=== PATIENT | male | born 2000 | race Caucasian/White ===

== ENCOUNTER 2024-06-30 10:40 | Emergency (ER) | payer BC, SELFPAY ==
[2024-06-30 10:56] VITALS: BP 151/84
[2024-06-30 11:38] VITALS: BMI 30.7
--- NOTE | 2024-06-30 11:49 | ED.GENMED ---
History of Present Illness
General
Chief Complaint: Chest Pain
Source: patient
Exam Limitations: none
Time Seen by Provider: 06/30/24 11:22
Nursing documentation reviewed up to this point in time: agreed with
History of Present Illness
History of Present Illness:
Patient is a 23-year-old male presenting to the emergency department for evaluation of chest pain. Patient reports that he has had mild chest discomfort on his left side over the past 3 to 4 days, worse with deep inspiration. There is no radiation
of pain. Patient denies any exertional component to pain. Patient denies any associated fever, chills, cough, lightheadedness/dizziness, back pain, or lower extremity swelling/pain.
Patient does note that he has had an intermittent cold for many weeks that seems to come and go. He denies any significant coughing with his upper respiratory infection.
No recent travel. No recent surgeries. No personal or family history of blood clots or clotting disorders. Patient denies smoking.
Review of Systems
Review of Systems
Allergies reviewed?: Yes
All Other Systems: ROS reviewed and negative except as documented in HPI and ROS
Phy Exam
Physical Exam
Physical Exam:
Vitals: Patient's vital signs are stable. Afebrile
General: Patient is well appearing, no acute distress
Skin: Warm and dry, no rashes or lesions
Head: Normocephalic, atraumatic
Eyes: Sclera nonicteric. EOMs intact. No nystagmus.
Throat: Protecting airway
Neck: Normal ROM, no cervical spine tenderness, no meningismus. Trachea midline
Cardiac: Regular rate and rhythm, no murmurs. Mildly reproducible tenderness to left anterior chest wall. No crepitus. No overlying ecchymoses or rash.
Pulm: Normal respiratory effort, no wheezes, rales, rhonchi heard on exam.
Abdomen: No abdominal tenderness.
Extremities: No evidence of cyanosis or edema. Bilateral lower extremities without any tenderness or edema
Neuro: AAOx3. CN II-XII intact. No focal neurologic deficits.
Psychiatric: Normal affect.
Scores
Heart Score for Chest Pain Patients
STEMI patient?: No
History: Slightly or Non-Suspicious
ECG: Normal
Age: </= 45 years
Risk Factors: No Risk Factors
Troponin: </= Normal Limit
Heart Score for Chest Pain Patients: 0
Heart Score Risk: 2.5% MACE over next 6 weeks
Course
Orders/Labs/Results
Orders:
Orders
06/30/24 10:41
EKG [Electrocardiogram (*1)] Urgent
Reason for Study: Chest Pain
EKG- Treatment ONCE
06/30/24 11:48
Ketorolac [Toradol] 15 mg IV NOW STA
06/30/24 12:03
Complete Blood Count/With Diff Urgent
Comprehensive Metabolic Panel Urgent
D-Dimer Urgent
Monotest Urgent
Troponin I Urgent
06/30/24 12:40
CR Chest - 2 Views Urgent
Comment:
Reason For Exam: chest pain, shortness of breath
Abnormal Lab Results
06/30/24
12:03
MCV 79.2 L fL
(80.0-94.0)
MCH 25.6 L pg
(27.0-31.0)
MCHC 32.3 L g/dL
(33.0-37.0)
Absolute Monos (auto) 0.8 H 10^3/uL
(0.1-0.6)
Monocytes % 10.7 H %
(1.7-9.3)
06/30/24 12:03
06/30/24 12:03
Vital Signs
Initial and Last Documented VS:
Initial Vital Signs
Temp Pulse Resp BP Pulse Ox
98.0 F 98 20 151/84 99
06/30/24 10:56 10/19/24 10:56 06/30/24 10:56 06/30/24 10:56 06/30/24 10:56
Last Documented Vital Signs
Temp Pulse Resp BP Pulse Ox
98.0 F 81 16 128/81 98
06/30/24 16:08 06/30/24 16:08 06/30/24 16:08 06/30/24 16:08 06/30/24 16:08
MDM/Problems Addressed
Differential Diagnosis Includes:
Not limited to: Costochondritis, pleurisy, pneumonia, pneumothorax, PE, pericarditis, myocarditis, etc.
MDM/Problems Addressed:
16-year-old male with history as above presenting with few days of constant pleuritic chest pain. No positional or exertional component, fevers. Patient did have recent cold a few weeks ago. Vital stable. Physical exam as above. Patient is
nontoxic and stable. Physical exam as above. EKG obtained in triage reviewed without any acute ischemic changes. Labs reviewed. No acute abnormalities. Fortunately D-dimer was negative and patient worked negative. Do not suspect pulmonary
embolism. Troponin was undetectable and given symptoms been constant for the past 3 to 4 days feel is sufficient to rule out acute [facility]. Given ongoing upper respiratory symptoms over the past 2 weeks�a monotest was also obtained which was negative.
Chest x-ray without any acute abnormalities. No evidence of pneumonia or pneumothorax. Differential diagnosis considered. Overall presentation consistent with low risk chest pain do not suspect ACS or PE. Back likely musculoskeletal origin
versus pleurisy. Patient did improve following IV Toradol. Feel patient is stable for discharge with primary care follow-up. Return precautions discussed at length. Recommend NSAIDs, rest at home. Patient and patient's mom comfortable plan.
Case discussed with attending physician.
Chronic conditions affecting care:
N/A
Acute Exacerbation and/or Progression of Chronic Illness:
N/A
*Radiology
Radiology exam reviewed: preliminary read by ED provider and radiology read reviewed (No acute cardiopulmonary disease)
*Pulse Oximetry
Patient hypoxic: no
*EKG
Interpreted by ED Provider?: Yes
EKG Intrepretation Date: 06/30/24
Interpretation: normal
Comparison EKG: changes noted
Heart Rate: 86
Rate: normal
Rhythm: sinus
[place]: normal axis
Interval: normal interval
Ischemia: no ischemia
*Senior Auditor Interpretation
Rate: normal
Interpretation: normal
Heart Rate: 80
Rhythm: sinus
*Critical Care Note
Total Time (30-74mins, 75-104mins- exclusive of procedures): Not Applicable
ED Attending Note
-
Portions of this chart may have been created with voice recognition software.� Occasional wrong word or��sound alike� substitutions may have occurred due to the inherent limitations of voice recognition software.
Discharge Plan
Departure
Patient Disposition: Home (Routine Discharge)
Date of Disposition: 06/30/24
Time of Disposition: 15:46
Patient with high blood pressure during this ER visit?: Yes
Condition: Good
Covid-19: Not Applicable
Discharge Problem:
Chest pain, Pleurisy
Instructions: Chest pain, Pleurisy
Referrals:
French Olmedo MD [Family Provider] - Follow up in 5-7 days
Activity Restrictions/Additional Instructions:
Return to the emergency department with any fevers, chest pain, shortness of breath, severe back pain, swelling in lower legs, dizziness/lightheadedness, worsening in current symptoms, or any other concern
-As discussed�you can take Motrin at home as needed for discomfort. Is important stay well-hydrated get plenty of rest. Avoid any activities that further aggravate discomfort.
-Follow-up with primary care within the week to ensure symptoms are improving/for further evaluation
Monitor your symptoms closely return to the emergency department with any acute worsening/new symptoms
Interventions
Interventions:
*Risk Screen - Suicide Last Done: 06/30/24 11:46
*General Assessment Last Done: 06/30/24 11:46
*Neglect/Abuse Screening Last Done: 06/30/24 16:08
ED- Fall Risk Assessment Last Done: 06/30/24 11:49
*ED COVID-19 Vaccine History Last Done: 06/30/24 11:45
*Nursing Disposition Last Done: 06/30/24 16:08
ED- Cardiac Assessment Last Done: 06/30/24 12:54
Discharge Date and Time
Discharge Date/Time: 06/30/24 16:09
Print Language: PORTUGUESE
[2024-06-30] MEDS: TORADOL 15 MG IV (12:04)
[2024-06-30 12:19] LABS: % Basophils 0.5 % (0-2); % Eosinophils 1.4 % (0-6); % Immature Granulocytes 0.3 % (0-0.5); % Monocytes 10.7 % (1.7-9.3); % Neutrophils 56.1 % (42.2-75.2); Absolute Eosinophils 0.1 10^3/uL (0-0.7); Absolute Lymphocytes 2.4 10^3/uL (1.2-3.4); Absolute Monocytes 0.8 10^3/uL (0.1-0.6); Absolute Neutrophils 4.4 10^3/uL (1.4-6.5); Hematocrit 42.7 % (39.0-52.0); Hemoglobin 13.8 g/dL (13.0-18.0); Mean Corp Hgb Conc. 32.3 g/dL (33.0-37.0); Mean Corpuscular Hgb 25.6 pg (27.0-31.0); Mean Corpuscular Volume 79.2 fL (80.0-94.0); Mean Platelet Volume 9.3 fL (7.4-10.4); Nucleated Red Blood Cells % 0 % (-); Platelet Count 298 10^3/uL (130-400); Red Blood Cell Count 5.39 10^6/uL (4.70-6.10); Red Cell Dist. Width 13.2 % (11.5-14.5); White Blood Cell Count 7.8 10^3/uL (4.8-10.8)
[2024-06-30 12:35] LABS: D-Dimer 0.32 ug/mlFEU (0.00-0.50)
[2024-06-30 12:41] LABS: Troponin I < 0.012 ng/ml
[2024-06-30 12:53] LABS: ALT (SGPT) 19 U/L (0-50); AST (SGOT) 23 U/L (17-59); Albumin 4.6 g/dl (3.5-5.0); Alkaline Phosphatase 55 U/L (38-126); Blood Urea Nitrogen 16 mg/dl (9-20); Calcium 9.8 mg/dl (8.4-10.2); Carbon Dioxide 27 mmol/L (22-30); Chloride 104 mmol/L (98-107); Estimated Creatinine Clearance > 125 ml/min; Glucose 92 mg/dl (70-99); Potassium 4.3 mmol/L (3.5-5.1); Sodium 140 mmol/L (135-145); Total Bilirubin 0.4 mg/dl (0.2-1.3); Total Protein 7.3 g/dl (6.3-8.2); eGFR > 60.00
[2024-06-30 13:00] LABS: Monotest Negative (Negative)
[2024-06-30 16:08] VITALS: BP 128/81
== END 2024-06-30 16:09 | disposition home or self-care (01) ==
LOC: EMR 10:40
PROVIDERS: Physician Assistant; EMERGENCY PHYSICIAN Emergency Medicine; FAMILY PHYSICIAN Family Medicine
DX: R07.89 Other chest pain (principal); R09.1 Pleurisy
CPT/HCPCS: 96374; 99285; 71046; 80053; 84484; 85025; 85379; 86308; 93005